=== PATIENT | female | born 1980 ===

== ENCOUNTER 2022-10-03 11:59 | Emergency (ER) | payer BC ==
[2022-10-03 12:42] LABS: ESTIMATED GFR 94 mL/min (>60)
[2022-10-03] MEDS ORDERED: Iopamidol 755 Mg/ML 100 ML Bottle IV ONE (13:21)
[2022-10-03] MEDS ORDERED: Diatrizoate Meglumine/Diatrizoate Sodium 37% 30 ML Bottle PO ONE (13:21)
[2022-10-03 15:21] VITALS: BP 120/84; PULSE 94
== END 2022-10-03 15:00 ==
LOC: FB.ED 11:59
DX: K35.80 Unspecified acute appendicitis (principal); D72.829 Elevated white blood cell count, unspecified; R79.82 Elevated C-reactive protein (CRP); Z88.1 Allergy status to other antibiotic agents
CPT/HCPCS: 36415; 74177; 80053; 86140; 99285; Q9963; Q9967